=== PATIENT | female | born 1980 | race African-American/Black ===

== ENCOUNTER 2017-04-22 17:22 | Emergency (ER) | payer OTHER ==
[~2017-04-22] VITALS: Ht 165.1 cm; Wt 73.7 kg
[~2017-04-22 17:22] MED LIST: Motrin PO; VENTOLIN5 MG/1 ML IH
[2017-04-22] MEDS ORDERED: ULTRACET1 TABLET PO (18:03)
[2017-04-22] MEDS ORDERED: INDOCIN50 MG PO (18:03)
[2017-04-22 18:48] VITALS: BP 136/99
== END 2017-04-22 18:57 | disposition home or self-care (01) ==
LOC: EME 17:22
DX: M70.42 Prepatellar bursitis, left knee (principal); M76.52 Patellar tendinitis, left knee; J45.909 Unspecified asthma, uncomplicated
CPT/HCPCS: 99281; 99283

== ENCOUNTER 2017-04-30 11:12 | Emergency (ER) | payer OTHER ==
[~2017-04-30] VITALS: Ht 165.1 cm; Wt 70.7 kg
[~2017-04-30 11:12] MED LIST changes: +INDOCIN50 MG PO; +ULTRACET1 TABLET PO
[2017-04-30] MEDS ORDERED: NAPROSYN500 MG PO (13:53)
[2017-04-30 14:26] VITALS: BP 149/110
== END 2017-04-30 14:27 | disposition home or self-care (01) ==
LOC: EME 11:12
DX: M25.462 Effusion, left knee (principal); J45.909 Unspecified asthma, uncomplicated
CPT/HCPCS: 73564; 99281; 99283